=== PATIENT | female | born 1965 | race Caucasian/White ===

== ENCOUNTER 2019-01-01 11:37 | Emergency (ER) | payer BC ==
[2019-01-01 12:29] VITALS: BP 133/72
--- NOTE | 2019-01-01 13:55 | UC ---
Respiratory Complaint HPI - HPI Summary HPI Summary: 1 WEEK OF PERSISTENT COUGH AND SORE THROAT. HAS RECENTLY BECOME HOARSE. NO FEVER, NAUSEA/VOMITING. NO NASAL CONGESTION OR SINUS PRESSURE. NO HISTORY OF ASTHMA OR ALLERGIES. - History of Current Complaint Chief Complaint: UCRespiratory Stated Complaint: COUGH/SORETHROAT Time Seen by Provider: 01/01/19 13:02 Hx Obtained From: Patient Onset/Duration: Gradual Onset, Lasting Days, Still Present Timing: Constant Severity Initially: Moderate Severity Currently: Moderate Pain Intensity: 3 Pain Scale Used: 0-10 Numeric Character: Cough: Nonproductive Aggravating Factors: Nothing Alleviating Factors: Nothing Associated Signs And Symptoms: Positive: URI, Hoarseness. Negative: Dyspnea, Fever, Chills, Wheezing, Nasal Congestion, Sinus Discomfort - Allergies/Home Medications Allergies/Adverse Reactions: Allergies Allergy/AdvReac Type Severity Reaction Status Date / Time No Known Allergies Allergy Verified 01/01/19 12:29 PMH/Surg Hx/FS Hx/Imm Hx Previously Healthy: Yes - Surgical History Surgical History: Yes Surgery Procedure, Year, and Place: Lt KNEE -30+ YRS AGO - Family History Known Family History: Positive: Non-Contributory - Social History Alcohol Use: None Substance Use Type: None Smoking Status (MU): Former Smoker Amount Used/How Often: 1 PPD X 20 YEARS When Did the Patient Quit Smoking/Using Tobacco: 6 YEARS AGO Review of Systems All Other Systems Reviewed And Are Negative: Yes Constitutional: Positive: Negative ENT: Positive: Sore Throat Respiratory: Positive: Cough Cardiovascular: Positive: Negative Gastrointestinal: Positive: Negative Physical Exam Triage Information Reviewed: Yes Appearance: Well-Appearing, No Pain Distress, Well-Nourished Vital Signs: Initial Vital Signs Temp 99 F 01/01/19 12:27 Pulse 86 01/01/19 12:27 Resp 17 01/01/19 12:27 BP 133/72 01/01/19 12:27 Pulse Ox 100 01/01/19 12:27 Vital Signs Reviewed: Yes Eyes: Positive: Conjunctiva Clear ENT: Positive: Hearing grossly normal, Pharynx normal, TMs normal Neck: Positive: Supple, Nontender, No Lymphadenopathy Respiratory Exam: Normal Cardiovascular Exam: Normal Abdomen Description: Positive: Soft Musculoskeletal: Positive: No Edema Neurological: Positive: Alert Psychological: Positive: Age Appropriate Behavior Skin: Negative: Rashes Respiratory Course/Dx - Course Course Of Treatment: DISCUSSED WITH PATIENT THAT HER SYMPTOMS ARE LIKELY VIRALLY MEDIATED AND WILL GET BETTER ON THEIR OWN, HOWEVER SINCE SHE HAS BEEN SICK FOR OVER A WEEK WILL GO AHEAD AND PRESCRIBE ANTIBIOTICS. I ENCOURAGED HER TO WAIT ANOTHER 5-7 DAYS TO SEE IF SHE DOESN'T GET BETTER ON HER OWN. WILL ALSO GIVE COUGH SYRUP TO HELP WITH HER SYMPTOMS. ENCOURAGED HYDRATION. OTC MEDICATIONS NEEDED. - Differential Dx/Diagnosis Provider Diagnosis: Acute bronchitis Discharge - Sign-Out/Discharge Documenting (check all that apply): Patient Departure All imaging exams completed and their final reports reviewed: No Studies - Discharge Plan Condition: Stable Disposition: HOME Prescriptions: Azithromycin 500 mg PO DAILY #5 tab Codeine Phosphate/Guaifenesin [Codeine-Guaifen 10-100 mg/5 ml] 5 - 10 ml PO Q6H PRN #150 ml MDD 40ML PRN Reason: Cough Patient Education Materials: Acute Bronchitis (ED) Referrals: Rigoberto Baez MD [Primary Care Provider] - If Needed Additional Instructions: YOUR SYMPTOMS MAY BE VIRALLY MEDIATED BUT GIVEN THE LENGTH OF TIME YOU HAVE BEEN ILL WE WILL COVER YOU WITH ANTIBIOTICS. IF YOU START THE MEDICINE BE SURE TO TAKE IT FOR THE FULL COURSE. REST, HYDRATE, OTC MEDS NEEDED. WILL ALSO TREAT SYMPTOMS WITH COUGH MEDICINE. SEEK FOLLOW-UP WITH YOUR PCP IF YOU ARE NOT IMPROVING OVER THE NEXT 1-2 WEEKS. - Billing Disposition and Condition Condition: STABLE Disposition: Home
== END 2019-01-01 13:55 | disposition home or self-care (01) ==
LOC: UCEAST 11:37
DX: J20.9 Acute bronchitis, unspecified (principal); Z87.891 Personal history of nicotine dependence
CPT/HCPCS: 99212; G0463

== ENCOUNTER 2020-06-05 07:30 | Inpatient (IN) ==
[~2020-06-05 07:30] MED LIST: Buffered Lidocaine 1% SYRIN 1 ml INTRADERM ONE; Lactated Ringers 1000 ml BAG 1,000 ML IV SCH
[2020-06-05] MEDS ORDERED: Lidocaine 2% PF 5 ML VIAL ONE ×2 (08:55→11:23)
[2020-06-05] MEDS ORDERED: Propofol 10 MG/ML 20 ML BTL ONE ×6 (08:55→14:56)
[2020-06-05] MEDS ORDERED: Dexamethasone IV 4 MG/ML VIAL 1 ml VIAL ONE ×3 (08:55→14:20)
[2020-06-05] MEDS ORDERED: Rocuronium 50 mg VIAL 10 mg/ml 5 ml VIAL (50 mg) ONE (08:56)
[2020-06-05] MEDS ORDERED: Midazolam 2 mg/2 ml VIAL 1 mg/ml 2 ml VIAL (2 mg) ONE (08:56)
[2020-06-05] MEDS ORDERED: fentaNYL 100 mcg/2 ml 50 MCG/ML VIAL ONE ×2 (08:56)
[2020-06-05] MEDS ORDERED: ceFAZolin 2 GM PREMIX 2 GM/50 ML BAG ONE (09:13)
[2020-06-05] MEDS ORDERED: EPHEDrine (Pressors) 50 MG/ML VIAL ONE (09:48)
[2020-06-05] MEDS ORDERED: Midazolam 5 mg/5 ml VIAL 1 mg/ml 5 ml VIAL (5 mg) ONE (11:22)
[2020-06-05] MEDS ORDERED: Ondansetron 4 mg VIAL 2 MG/ML 2 ml VIAL ONE ×2 (11:24→14:18)
[2020-06-05] MEDS ORDERED: ROPIVACAINE 5 MG/ML 30 ML BTL (0.5%) ONE (11:42)
[2020-06-05] MEDS ORDERED: Lidocaine 1% MPF 5 ML VIAL ONE (11:42)
[2020-06-05] MEDS ORDERED: Vancomycin 1,000 MG VIAL ONE (11:53)
[2020-06-05] MEDS ORDERED: Bupivacaine 0.25% SDV 30 ML ONE (11:53)
[2020-06-05] MEDS ORDERED: Ondansetron 4 mg VIAL 2 MG/ML 2 ml VIAL IV PRN ×2 (12:04→15:41)
[2020-06-05] MEDS ORDERED: fentaNYL 100 mcg/2 ml 50 MCG/ML VIAL IV PRN (12:04)
[2020-06-05] MEDS ORDERED: Naloxone 0.4 mg VIAL 0.4 mg/ml 1 ml VIAL IV PRN (12:04)
[2020-06-05] MEDS ORDERED: HYDROmorphone 1 MG/1 ML SYRINGE IV PRN (12:04)
[2020-06-05] MEDS ORDERED: Ketamine HCL 50 mg/ml 10 ml VIAL (500 MG) ONE (12:07)
[2020-06-05] MEDS ORDERED: Bupivacaine 0.5% SDV PF 30ML VIAL ONE (12:44)
[2020-06-05] MEDS ORDERED: Ondansetron ODT 4 mg TAB 4 MG TAB PO PRN (15:41)
[2020-06-05] MEDS ORDERED: diPHENhydraMINE IV 50 MG/ML 1 ml VIAL (BENADRYL) IV PRN (15:41)
[2020-06-05] MEDS ORDERED: diPHENhydraMINE 25 mg TAB PO PRN (15:41)
[2020-06-05] MEDS ORDERED: Magnesium Hydroxide LIQ 30 ML UDC PO PRN (15:41)
[2020-06-05] MEDS ORDERED: Lactulose 30 ml UDC PO PRN (15:41)
[2020-06-05] MEDS ORDERED: HYDROmorphone 1 MG/1 ML SYRINGE ONE (15:51)
[2020-06-05] MEDS ORDERED: Morphine 2 MG/ML SYRINGE IV PRN (15:56)
[2020-06-05] MEDS: Lactated Ringers 1000 ml BAG 1,000 ML IV SCH (17:30)
[2020-06-05] MEDS: Magnesium Hydroxide LIQ 30 ML UDC PO SCH (21:02)
[2020-06-05] MEDS: ceFAZolin 1 GM ADVAN 1 GM in NS 0.9% 50 ML 50 ML IVPB SCH (21:04)
[2020-06-06] MEDS: Lactated Ringers 1000 ml BAG 1,000 ML IV SCH (03:44)
[2020-06-06] MEDS: ceFAZolin 1 GM ADVAN 1 GM in NS 0.9% 50 ML 50 ML IVPB SCH ×2 (05:55→12:43)
[2020-06-06 06:01] LABS: Hematocrit 30 % (35-47); Hemoglobin 10.1 g/dL (12.0-16.0); Mean Platelet Volume 8.6 fL (7.4-10.4); Platelet Count 236 10^3/uL (150-450)
[2020-06-06 06:24] LABS: BUN/Creatinine Ratio 29.4 (8-20); Calcium 7.8 mg/dL (8.6-10.3); EGFR African American 109.1 (>60); EGFR Non-African American 90.2 (>60); Potassium 4.3 mmol/L (3.5-5.0)
[2020-06-06] MEDS: Magnesium Hydroxide LIQ 30 ML UDC PO SCH (08:30)
[2020-06-06] MEDS ORDERED: Vitamin THERAPEUTIC TAB PO SCH (09:00)
[2020-06-06] MEDS ORDERED: Venlafaxine XR 75 mg PO SCH (09:00)
[2020-06-06 11:46] VITALS: BP 131/58
== END 2020-06-06 14:45 | disposition home or self-care (01) | DRG 302 ==
LOC: AA 09:03 → SSU 15:41
PROVIDERS: ADMIT Orthopaedic Surgery; ATTEND Orthopaedic Surgery